=== PATIENT | female | born 1990 | race American Indian/Alaskan Native ===

== ENCOUNTER 2022-02-12 22:28 | Outpatient (CLI) | payer OTHER ==
[2022-02-12] MEDS ORDERED: LACTATED RINGERS 1,000 ML ONE (22:40)
[2022-02-12 23:01] VITALS: BP 117/53
[2022-02-12] MEDS ORDERED: LACTATED RINGERS 500 ML IV ONE (23:23)
[2022-02-12] MEDS ORDERED: ONDANSETRON 4 MG/2 ML INJ IV ONE (23:34)
[2022-02-12 23:35] LABS: Bilirubin,Urine NEG (Negative); Blood,Urine SM (Negative); Color,Urine Yellow (Yellow); Protein,Urine <15 mg/dL mg/dL (Negative); Urobilinogen,Urine < 2.0 mg/dL (<2.0)
[2022-02-12 23:56] LABS: RBC,Urine < 1.0 /HPF (0.0-6.0); WBC,Urine < 1.0 /HPF (0.0-6.0)
== END 2022-02-13 00:55 | disposition home or self-care (01) ==
LOC: TRG 22:28 → APU 22:31 → TRG 02-13 00:55
PROVIDERS: ATTEND Obstetrics & Gynecology
DX: O21.2 Late vomiting of pregnancy (principal); O26.892 Other specified pregnancy related conditions, second trimester; R10.9 Unspecified abdominal pain; Z3A.25 25 weeks gestation of pregnancy
CPT/HCPCS: 81001; 96365; J2405; J7120